=== PATIENT | female | born 1935 | race Caucasian/White ===

== ENCOUNTER 2016-04-13 14:13 | Emergency (ER) | payer MEDICARE, OTHER ==
[~2016-04-13] VITALS: Ht 152.4 cm; Wt 45.5 kg
[~2016-04-13 14:13] MED LIST: CEPH-443 PO; DIAZ-90 PO; GLIM4TAB55 PO; GLYB1TAB3 PO; HYDR-1666 PO; IBUP-727 PO; LORA-441 PO; LOSA100T47 PO; ONDA4TAB35 PO; PIOG30TA19 PO; TRAM50TA2 PO; [UNRECOGNIZED DRUG - CODE] PO
[2016-04-13 14:22] VITALS: Ht 152.4 cm; Wt 45.5 kg
[2016-04-13] MEDS ORDERED: ONDANSETRON 4 MG INJ IV STA (14:33)
[2016-04-13] MEDS ORDERED: ONDA4TAB14 PO (14:45)
[2016-04-13 15:09] VITALS: BP 146/80; PULSE 89; RESP 16; TEMP 98
--- NOTE | 2016-04-13 18:45 | ERD ---
ER Documentation Chief Complaint Date/Time DATE: 04/13/16 TIME: 18:44 Chief Complaint dizziness, vomiting, generalized weakness HPI Patient is an 80-year-old female with dementia and diabetes who presents with vomiting. The patient was brought in by ambulance. The patient came from home. Please note the history and physical exam is limited as the patient has dementia. Patient has whole body pain. She also has vomiting. She has no diarrhea. She has had no fevers. At this point she has no complaints. Her said that he called 911 because she was complaining of whole body pain at home. Her primary doctor is Dr. Ayala. ROS All systems reviewed and are negative except as per history of present illness. Medications Home Meds Active Scripts Ondansetron (Ondansetron Odt) 4 Mg Tab.rapdis, 4 MG PO Q6H Y for NAUSEA AND/OR VOMITING, #30 TAB Prov:MAUREEN JIMENEZ MD 04/13/16 Ondansetron Hcl* (Zofran* ODT) 4 mg -ODT Tab.disper, 4 MG PO Q6 Y for NAUSEA AND /OR VOMITING, #10 TAB Prov:CANDE CHURCH MD 06/07/15 Cephalexin* (Keflex*) 500 Mg Capsule, 500 MG PO TID for 5 Days, CAP Prov:ALONDRA HUNG MD 08/02/14 Diazepam* (Valium*) 5 Mg Tablet, 5 MG PO Q8 Y for MUSCLE SPASMS, #20 TAB Prov:WELLINGTON ROCHA 07/20/14 Reported Medications Lorazepam* (Ativan*) 0.5 Mg Tablet, 0.5 MG PO BID 05/08/12 Losartan Potassium* (Cozaar*) 100 Mg Tablet, 100 MG PO DAILY 05/08/12 Glimepiride* (Amaryl*) 4 Mg Tablet, 4 MG PO BID 05/08/12 Calc/D3/Mag/Zn/Fire Sprinkler Inspector/Abdifatah/Lawrence (Pv Calcium 600 Mg Plus Vit D) 1 Tab Tablet, 1 TAB PO DAILY 05/08/12 Tramadol HCl (Tramadol HCl) 50 Mg Tablet, 50 MG PO BID 05/08/12 Glyburide, Micro-Metformin Hcl (Glyburid-Metformin) 1 Tab Tablet, 1 TAB PO BID 05/08/12 Pioglitazone Hcl* (Actos*) 30 Mg Tablet, 30 MG PO DAILY 05/08/12 Ibuprofen (Motrin) 600 Mg Tablet, 600 MG PO QID 04/05/12 Hydrocodone Bit/Acetaminophen (Vicodin 5/500 Tablet) 1 Tab Tablet, 1 TAB PO QID Y for PAIN 04/05/12 Allergies Allergies: Coded Allergies: No Known Allergies (Verified Allergy, Unknown, 08/02/14) PMhx/Soc History of Surgery: Yes (APPENDECTOMY, hysterectomy and hernia repair) Anesthesia Reaction: No Hx Neurological Disorder: No Hx Respiratory Disorders: No Hx Cardiac Disorders: Yes (HTN) Hx Psychiatric Problems: Yes (dementia) Hx Miscellaneous Medical Probl: Yes (DM) Hx Alcohol Use: No Hx Substance Use: No Hx Tobacco Use: No Smoking Status: Never smoker FmHx Family History: diabetes Physical Exam Vitals Vital Signs Date Time Temp Pulse Resp B/P Pulse Ox O2 Delivery O2 Flow Rate FiO2 04/13/16 15:09 98.0 89 16 146/80 100 04/13/16 14:22 98.5 78 16 138/68 98 Physical Exam Const: No acute distress Head: Atraumatic Eyes: Normal Conjunctiva ENT: Normal External Ears, Nose and Mouth. Neck: Full range of motion..~ No meningismus. Resp: Clear to auscultation bilaterally Cardio: Regular rate and rhythm, no murmurs Abd: Soft, non tender, non distended. Normal bowel sounds Skin: No petechiae or rashes Back: No midline or flank tenderness Ext: No cyanosis, or edema Neur: Awake but demented at baseline Results 24 hrs Laboratory Tests Test 04/13/16 14:17 Bedside Glucose 281mg/dL Current Medications Medications (Trade) Dose Ordered Sig/Darinel Route PRN Reason Start Time Stop Time Status Last Admin Dose Admin Ondansetron HCl (Zofran Inj) 4 mg ONCE STAT IV 04/13/16 14:33 04/13/16 14:34 DC 04/13/16 14:35 Procedures/MDM Patient is a 80-year-old female with diabetes and dementia who presents with whole body pain and vomiting. The patient has no vomiting here in the emergency department. The patient has no abdominal pain on exam. The patient has normal vital signs. The now says "if she is not complaining of anything I will just take her home". The patient was given Zofran IV prior to discharge. The patient can return for any worsening symptoms. At this point I doubt appendicitis, cholecystitis, pancreatic, or bowel obstruction. I doubt diabetic ketoacidosis. The patient could return to the ER if she has any worsening symptoms. Departure Diagnosis: Primary Impression: Nausea and vomiting Vomiting type: unspecified Vomiting Intractability: non-intractable Qualified Code: R11.2 - Non-intractable vomiting with nausea, unspecified vomiting type Condition: Fair Patient Instructions: Nausea and Vomiting-Adult Referrals: SOINA AYALA (PCP) Additional Instructions: FOLLOW UP WITH YOUR PRIMARY CARE PHYSICIAN TOMORROW.Return to this facility if you are not improving as expected. MAUREEN JIMENEZ MD Apr 13, 2016 18:45
== END 2016-04-13 15:09 | disposition home or self-care (01) ==
LOC: E/R 14:13
DX: R11.2 Nausea with vomiting, unspecified (principal); I10 Essential (primary) hypertension; E11.9 Type 2 diabetes mellitus without complications; Z79.84 Long term (current) use of oral hypoglycemic drugs
CPT/HCPCS: 82962; 96374; 99284; J2405

== ENCOUNTER 2017-12-07 21:02 | Emergency (ER) | END 2017-12-07 23:38 | disposition EXP ==